=== PATIENT | female | born 1975 | race Asian ===

== ENCOUNTER 2017-04-11 20:43 | Emergency (ER) | payer OTHER, BC ==
[~2017-04-11] VITALS: Ht 149.9 cm; Wt 49.0 kg
[~2017-04-11 20:43] MED LIST: ADDERAL20 MG ORAL; ALPRAZOLAM0.5 MG PO; LAMICTAL150 MG ORAL
[2017-04-11] MEDS ORDERED: ADDERAL20 MG ORAL (20:46)
[2017-04-11] MEDS ORDERED: ZOLOFT25 MG ORAL (20:46)
[2017-04-11] MEDS ORDERED: LAMICTAL25 MG ORAL (20:46)
[2017-04-11 20:50] VITALS: BP 151/95
[2017-04-11 21:20] VITALS: BP 151/95
--- NOTE | 2017-04-11 22:36 | Emergency Room Report ---
History of Present Illness General Chief Complaint: Behavioral Complaint Source: Patient Present Illness HPI 41-year-old female presents ED for evaluation. Patient brought in by EMS. Per EMS patient allegedly overdosed on Xanax tonight and called 911. Upon arrival patient denies overdosing on Xanax states that she took her normal prescribed dose. Denies any suicidal or homicidal ideation. Denies hearing voices. Denies alcohol or drug use. No other aggravating relieving factors. Denies any other associated symptoms Allergies: Coded Allergies: No Known Allergies (Unverified , 04/11/17) Patient History Past Medical History: psych hx Past Surgical History: none Pertinent Family History: none Social History: Denies: smoking, alcohol use, drug use Last Menstrual Period: 3 days ago Now: No Immunizations: UTD Reviewed Nursing Documentation: PMH: Agreed, PSxH: Agreed Nursing Documentation-PMH Past Medical History: No History, Except For History Of Psychiatric Problem: Yes - "mood disorder" Review of Systems All Other Systems: negative except mentioned in HPI Physical Exam Vital Signs Date Time Temp Pulse Resp B/P (MAP) Pulse Ox O2 Delivery O2 Flow Rate FiO2 04/11/17 20:39 98.4 96 16 151/95 100 Room Air Sp02 EP Interpretation: reviewed, normal General Appearance: no apparent distress, alert, GCS 15, non-toxic Head: normocephalic, atraumatic Eyes: bilateral eye normal inspection, bilateral eye PERRL ENT: hearing grossly normal, normal pharynx, no angioedema, normal voice Neck: full range of motion, supple/symm/no masses Respiratory: chest non-tender, lungs clear, normal breath sounds, speaking full sentences Cardiovascular #1: regular rate, rhythm, no edema Cardiovascular #2: 2+ carotid (R), 2+ carotid (L), 2+ radial (R), 2+ radial (L) , 2+ dorsalis pedis (R), 2+ dorsalis pedis (L) Gastrointestinal: normal bowel sounds, non tender, soft, non-distended, no guarding, no rebound Rectal: deferred Genitourinary: normal inspection, no CVA tenderness Musculoskeletal: back normal, gait/station normal, normal range of motion, non- tender Neurologic: alert, oriented x3, responsive, motor strength/tone normal, sensory intact, speech normal Psychiatric: judgement/insight normal, memory normal, no suicidal/homicidal ideation, anxious Reflexes: 3+ bicep (R), 3+ bicep (L), 3+ tricep (R), 3+ tricep (L), 3+ knee (R) , 3+ knee (L) Skin: normal color, no rash, warm/dry, well hydrated Lymphatic: no adenopathy Medical Decision Making Diagnostic Impression: Primary Impression: Behavioral change ER Course Hospital Course 41-year-old female presents ED status post alleged overdose on Xanax. Denies any suicidal ideation Differential diagnoses include: Psychosis, EtOH, drug abuse Clinical course patient placed on stretcher. After initial history physical exam reveals a female in no acute distress. Patient is awake alert oriented x3. However is upset that the police brought her to the hospital. States that her "rights were violated". She asked to file police report. Patient then got on the phone and was on the phone for some time Patient is not on a 5150 hold. Do not believe patient is a danger to herself or others at this time Patient eloped from ED i. I feel this is a highly complex case requiring extensive working including EKG/Rhythm strip, Xray/CT/US, Blood/urine lab work, repeat exams while in ED, and administration of strong opiates/narcotics for pain control, admission to hospital or close patient follow up. Diagnosis - behavioral change patient elopes from ED Last Vital Signs Date Time Temp Pulse Resp B/P (MAP) Pulse Ox O2 Delivery O2 Flow Rate FiO2 04/11/17 20:39 98.4 96 16 151/95 100 Room Air Status: unchanged Disposition: ELOPED Condition: Stable DANNY MCKENNA M.D. Apr 11, 2017 22:36
== END 2017-04-11 21:20 | disposition left against medical advice (07) ==
LOC: EDBD 20:43 → EMR 20:55 → MERGE 20:55 → EMR 21:20
DX: R46.89 Other symptoms and signs involving appearance and behavior (principal); F17.200 Nicotine dependence, unspecified, uncomplicated
CPT/HCPCS: 99282